=== PATIENT | female | born 1970 | race African-American/Black ===

== ENCOUNTER 2016-11-18 08:49 | Inpatient (IN) | payer OTHER ==
[~2016-11-18] VITALS: Ht 160 cm; Wt 112.0 kg
--- NOTE | ~2016-11-18 | EKG ---
[place] [address] [facility] [address] [place] [address] ELECTROCARDIOGRAM REPORT Name: WAGNER NAJERA Room #: 439-P [facility] [place] ..#: [id number] Admission: 11/18/16 Attend Phys: Foreign Burgess MD Discharge: Date of : 74 Report #: [id number] THIS REPORT FOR: //name// [facility] ED Test Date: 2016-11-18 Test Time: 09:21:28 Pat Name: WAGNER NAJERA Department: Room: 43 Gender: F Graphic Art Designer: ZARA : 1970 Requested By: Vikki Lee Order Number: [id number] MD: Porter Hernandes Measurements Intervals [place] Rate: 89 P: 59 WI: 157 QRS: 19 QRSD: 86 T: 37 QT: 382 QTc: 465 Interpretive Statements Sinus rhythm No significant abnormality No previous ECG available for comparison Electronically Signed On 11-20-2016 12:33:38 CDT by Porter Hernandes [email or web address] <ELECTRONICALLY SIGNED> By: Porter Hernandes MD, [facility] 11/20/16 1233 0921 0 Porter Hernandes MD, [facility] /EPI
[~2016-11-18 08:49] MED LIST: BACTRIM DS TAB1 EACH PO; COLACE100 MG PO; HYDROCODON-ACE1 EAC8 PO; KEFLEX500 MG PO; LAMISIL AT 1% C12 G1 TP; LEVOTHROID175 MCG PO; LEVOTHYROXIN0.125 M1 PO; LEVOTHYROXIN0.175 MG PO; NORCO 5-325 TA1 EACH PO; TRAMADOL 50 MG50 MG PO; TYLENOL325 MG PO
[2016-11-18 08:52] VITALS: BP 206/114
[2016-11-18] MEDS ORDERED: METFORMIN HCL500 MG PO (08:57)
[2016-11-18] MEDS ORDERED: PHENTERMINE H37.5 M1 PO (08:58)
[2016-11-18 09:25] LABS: ABSOLUTE NEUTROPHILS 4.2 thou/uL (1.4-8.2); BASOPHILS 0.5 % (0.0-2.0); HEMATOCRIT 40.4 % (37.0-47.0); HEMOGLOBIN 13.5 gm/dL (12.0-15.0); LYMPHOCYTES 41.1 % (24.0-44.0); MCH 29.1 pg (26.0-34.0); MCHC 33.5 g/dL (28.0-37.0); MONOCYTES 4.7 % (1.0-8.0); PLATELET COUNT 225 thou/uL (150-400); POLYS 51.7 % (36.0-66.0); RBC 4.64 mil/uL (4.20-5.00); RDW 14.7 % (10.5-14.5); WBC 8.1 thou/uL (4.0-11.0)
[2016-11-18 09:27] LABS: MANUAL DIFF NO
[2016-11-18 09:29] LABS: CALCIUM 9.7 mg/dL (8.5-10.1); CREATININE 1.3 mg/dL (0.6-1.0); POTASSIUM 3.6 mmol/L (3.5-5.1)
[2016-11-18 11:46] VITALS: BP 182/110
[2016-11-18 12:39] VITALS: BP 147/89
[2016-11-18 15:59] VITALS: BP 157/100
[2016-11-18 16:02] LABS: CHOLESTEROL 177 mg/dL (<200); HDL CHOLESTEROL 47 mg/dL (>40); LDL CHOLESTEROL 117 mg/dL (<100); TC:HDL 3.8 Ratio (Not establshd); TRIGLYCERIDE 67 mg/dL (<150); VLDL 13 mg/dL (<40)
[2016-11-18 16:04] LABS: SERUM ASSESSMENT Clear
[2016-11-18 18:33] VITALS: BP 138/87
[2016-11-18 20:23] VITALS: BP 137/80
[2016-11-18 22:11] LABS: FREE T4 0.93 ng/dL (0.82-1.77)
[2016-11-19] VITALS (10 sets, daily range): BP systolic 117–191; BP diastolic 75–120
[2016-11-19 05:10] LABS: GLYCOHEMOGLOBIN (HGB A1C) 5.6 % (4.8-5.6)
[2016-11-19 06:02] LABS: HEMATOCRIT 39.6 % (37.0-47.0); HEMOGLOBIN 13.1 gm/dL (12.0-15.0); MCH 29.1 pg (26.0-34.0); RBC 4.5 mil/uL (4.20-5.00); RDW 15.2 % (10.5-14.5); WBC 6.4 thou/uL (4.0-11.0)
[2016-11-19 06:15] LABS: CALCIUM 8.9 mg/dL (8.5-10.1); CREATININE 1.1 mg/dL (0.6-1.0); POTASSIUM 3.7 mmol/L (3.5-5.1)
[2016-11-20 07:31] VITALS: BP 142/84
[2016-11-20 12:04] VITALS: BP 132/80
[2016-11-20] MEDS ORDERED: CARVEDILOL6.25 MG PO (15:24)
[2016-11-20] MEDS ORDERED: LIPITOR 20 MG T20 M1 PO (15:24)
[2016-11-20] MEDS ORDERED: NORVASC10 MG PO (15:24)
[2016-11-20] MEDS ORDERED: ASPIR 8181 MG PO (15:25)
[2016-11-20] MEDS ORDERED: PRINIVIL20 MG PO (15:25)
[2016-11-20 15:53] VITALS: BP 132/80
[2016-11-20 15:56] VITALS: BP 132/80
== END 2016-11-20 17:07 | disposition home or self-care (01) | DRG 103 ==
LOC: ER 08:49 → EROBS 10:20 → 4S 11:45
PROVIDERS: Emergency Medicine; Hospitalist; Psychiatry & Neurology Neurology
DX: G43.909 Migraine, unspecified, not intractable, without status migrainosus (principal); E03.9 Hypothyroidism, unspecified; I16.0 Hypertensive urgency; E11.9 Type 2 diabetes mellitus without complications; R20.9 Unspecified disturbances of skin sensation; Z90.711 Acquired absence of uterus with remaining cervical stump; Z79.899 Other long term (current) drug therapy; Z79.82 Long term (current) use of aspirin
CPT/HCPCS: 10100